=== PATIENT | male | born 1950 | race Caucasian/White ===

== ENCOUNTER 2021-01-26 09:52 | Outpatient (CLI) | payer BC | END 2021-01-26 09:53 | disposition home or self-care (01) | LOC: NAV RAD 09:52 | PROVIDERS: ATTEND Family Medicine | DX: M54.5 Low back pain (principal); M25.852 Other specified joint disorders, left hip; M16.0 Bilateral primary osteoarthritis of hip; M47.816 Spondylosis without myelopathy or radiculopathy, lumbar region | CPT/HCPCS: 72100; 72202 ==

== ENCOUNTER 2021-05-13 10:57 | Emergency (ER) | payer BC ==
[2021-05-13 11:32] LABS: #Eosinphils 0.1 thou/uL (0.0-0.7); #Lymphocytes 2.1 thou/uL (1.20-3.40); #Monocytes 0.4 thou/uL (0.11-0.59); #Neutrophils 3.7 thou/uL (1.40-6.50); %Basophils 0.7 % (0.0-1.0); %Eosinophils 2.2 % (0.0-10.0); %Lymphocytes 33.5 % (21.0-51.0); %Neutrophils 57.6 % (42.0-75.0); Mean Corpuscular HGB CONC 32.4 g/dL (32.0-36.0); Mean Corpuscular Hemoglobin 30.1 pg (27.0-31.0); Mean Corpuscular Volume 92.7 fL (78.0-98.0); Mean Platelet Volume 8.1 fL (7.4-10.4); Platelet Count 356 thou/uL (130-400); RBC Distribution Width 12.5 % (11.5-14.5); Red Blood Cell (RBC) Count 4.64 mill/uL (4.70-6.10); White Blood Cell (WBC) Count 6.4 thou/uL (4.8-10.8)
[2021-05-13 11:39] LABS: PTT 30.2 sec (22.9-36.1)
[2021-05-13 11:46] LABS: ALT (SGPT) 20 U/L (8-55); AST (SGOT) 18 U/L (5-34); Albumin 4.1 g/dL (3.4-4.8); Alkaline Phosphatase 94 U/L (40-110); Anion Gap 13 mmol/L (10-20); BUN (Urea Nitrogen) 14 mg/dL (8.4-25.7); Bilirubin, Total 0.9 mg/dL (0.2-1.2); Calc. Creatinine Clearance 0 mL/min (70-130); Calcium 9.4 mg/dL (7.8-10.44); Carbon Dioxide 23 mmol/L (23-31); Chloride 109 mmol/L (98-107); Globulin 3.2 g/dL (2.4-3.5); Glucose 128 mg/dL (80-115); Potassium 4.1 mmol/L (3.5-5.1); Protein, Total 7.3 g/dL (5.8-8.1); Sodium 141 mmol/L (136-145)
[2021-05-13 12:04] LABS: CKMB 1.2 ng/mL (0-6.6)
[2021-05-13] MEDS ORDERED: Dexamethasone 20 MG/5 ML VIAL ONE (12:41)
== END 2021-05-13 15:37 | disposition short-term general hospital (02) ==
LOC: NAV ERS 10:57
DX: G93.9 Disorder of brain, unspecified (principal)
CPT/HCPCS: 36416; 70450; 80053; 82553; 84484; 85025; 85610; 85730; 93005; 96374; J1100

== ENCOUNTER 2021-12-20 14:16 | Outpatient (CLI) | payer BC, MEDICARE | END 2021-12-20 14:17 | disposition home or self-care (01) | LOC: NAV RAD 14:16 | PROVIDERS: ATTEND Nurse Practitioner Family | DX: M25.471 Effusion, right ankle (principal) ==